=== PATIENT | male | born 1930 | race Caucasian/White ===

== ENCOUNTER 2018-08-19 12:58 | Emergency (ER) | payer OTHER ==
[2018-08-19 13:56] LABS: ADD MAN DIFF? NO
[2018-08-19 14:08] LABS: BASOPHIL # 0.1 10^3/ul (0.0-0.1); BASOPHILS % 0.7 % (0.0-2.0); EOSINOPHILS # 0.6 10^3/ul (0.0-0.5); EOSINOPHILS % 6.5 % (0.0-7.0); HEMATOCRIT 31.1 % (42.0-52.0); HEMOGLOBIN 9.9 g/dl (14.0-18.0); LYMPHOCYTES # 1.8 10^3/ul (0.8-2.9); LYMPHOCYTES % 21.8 % (15.0-51.0); MEAN CORPUSCULAR HEMOGLOBIN 29.1 pg (29.0-33.0); MEAN CORPUSCULAR HGB CONC 31.8 g/dl (32.0-37.0); MEAN CORPUSCULAR VOLUME 91.5 fl (82.0-101.0); MEAN PLATELET VOLUME 8.7 fl (7.4-10.4); MONOCYTE # 0.9 10^3/ul (0.3-0.9); MONOCYTES % 11.1 % (0.0-11.0); NEUTROPHILS % 59.5 % (39.0-77.0); PLATELET COUNT 425 10^3/UL (140-415); RED CELL DISTRIBUTION WIDTH 14.5 % (11.5-14.5)
[2018-08-19 14:08] LABS: WHITE BLOOD COUNT 8.5 10^3/ul (4.8-10.8)
[2018-08-19 14:26] LABS: ANION GAP 4 (5-13); BLOOD UREA NITROGEN 23 mg/dl (7-20); CALCIUM 8.5 mg/dl (8.4-10.2); CARBON DIOXIDE 28 mmol/L (21-31); CHLORIDE 104 mmol/L (97-110); CREATININE 0.94 mg/dl (0.61-1.24); GLUCOSE 92 mg/dl (70-220); POTASSIUM 4.9 mmol/L (3.5-5.1); SODIUM 136 mmol/L (135-144)
[2018-08-19 14:28] LABS: INR 0.98; PARTIAL THROMBOPLASTIN TIME 31.5 Sec (23.0-35.0); PROTIME 13.1 Sec (11.9-14.9)
[2018-08-19 14:37] LABS: TROPONIN-I < 0.012 ng/ml (0.000-0.120)
[2018-08-19 14:52] LABS: D-DIMER 5588.26 ng/ml (<460)
[2018-08-19] MEDS: SOD CHLORIDE 0.9% 500 ML IV (15:31)
[2018-08-19] MEDS: IOHEXOL 100 ML (15:39)
[2018-08-19] MEDS: SOD CHLORIDE 0.9% 100 ML (15:39)
[2018-08-19] MEDS: PIPER-TAZO 3.375 GM IV (PMX) 100 ML IVPB (17:14)
[2018-08-19] MEDS: VANCOMYCIN 1 GM (PMX) 250 ML IVPB (18:29)
== END 2018-08-19 19:00 | disposition home or self-care (01) ==
LOC: E/R 12:58
DX: J18.9 Pneumonia, unspecified organism (principal); I10 Essential (primary) hypertension; E86.0 Dehydration; D64.9 Anemia, unspecified; R07.9 Chest pain, unspecified; Z79.82 Long term (current) use of aspirin
CPT/HCPCS: 36415; 71045; 71275; 80048; 84484; 85025; 85378; 85610; 85730; 87040; 93005; 96374; 96375; 99285-25